=== PATIENT | female | born 1950 | race African-American/Black ===

== ENCOUNTER 2017-01-01 16:22 | Emergency (ER) | payer OTHER ==
[~2017-01-01] VITALS: Ht 170.2 cm; Wt 57.0 kg
[~2017-01-01 16:22] MED LIST: ASPIRIN PO; INSLAN SQ; INSU100V3 IJ; LANTUS; LISINOPRIL PO; NOVOLOG
[2017-01-01] MEDS ORDERED: KETOROLAC 60MG/2ML VIAL IM ONE (20:30)
[2017-01-01 22:52] VITALS: BP 120/74
== END 2017-01-01 22:54 | disposition home or self-care (01) ==
LOC: ER 16:22
DX: M17.11 Unilateral primary osteoarthritis, right knee (principal); I10 Essential (primary) hypertension; E11.9 Type 2 diabetes mellitus without complications; Z88.0 Allergy status to penicillin; Z79.4 Long term (current) use of insulin; Z79.82 Long term (current) use of aspirin; Z96.659 Presence of unspecified artificial knee joint
CPT/HCPCS: 73560; 82962; 96372; 99284; J1885; Z7610

== ENCOUNTER 2018-01-16 15:51 | Emergency (ER) | payer MEDICARE, MEDICAID ==
[~2018-01-16] VITALS: Ht 170.2 cm; Wt 55.0 kg
[2018-01-16] MEDS ORDERED: INSULIN REGULAR (HUMULIN R) UD 100 UNITS/ML SYR SUBCUT ONE (18:00)
[2018-01-16] MEDS ORDERED: INSULIN REGULAR (HUMULIN R) 300UNITS/3ML SUBCUT ONE (18:30)
[2018-01-16 19:08] VITALS: BP 125/73
== END 2018-01-16 19:39 | disposition home or self-care (01) ==
LOC: ER 18:18
DX: E10.65 Type 1 diabetes mellitus with hyperglycemia (principal); I10 Essential (primary) hypertension; Z88.5 Allergy status to narcotic agent; Z79.4 Long term (current) use of insulin; Z88.0 Allergy status to penicillin; Z79.82 Long term (current) use of aspirin; Z96.659 Presence of unspecified artificial knee joint
CPT/HCPCS: 82962; 96372; 99283; J1815